=== PATIENT | male | born 1980 | race Caucasian/White ===

== ENCOUNTER 2024-10-15 13:36 | Emergency (ER) | payer OTHER, SELFPAY ==
[2024-10-15 13:40] VITALS: BP 144/100
--- NOTE | 2024-10-15 14:24 | EDRN ---
Pt is having urinary frequency which has increased, sl pain in lower abd area. Pt had PSA of 0.14.
--- NOTE | 2024-10-15 14:25 | EDRN ---
PCT Simone and this RN each bladder scanned pt and no urine (0 mL) scanned by each of us.
--- NOTE | 2024-10-15 14:34 | EDRN ---
Pt in BR attempting urine spec at this time.
[2024-10-15 14:46] VITALS: BP 136/101
[2024-10-15 15:18] LABS: Urine Character Slightly Cloudy (Clear)
[2024-10-15 15:46] LABS: Urine Red Blood Cell 0-2 /HPF (0-2); Urine Squamous Cell 0-2 /LPF (Few); Urine White Cell 0-2 /HPF (0-5)
--- NOTE | 2024-10-15 16:16 | ED.GENMED ---
History of Present Illness
General
Chief Complaint: Urinary Symptoms
Time Seen by Provider: 10/15/24 15:23
History of Present Illness
History of Present Illness:
SEE MDM
Phy Exam
Physical Exam
Physical Exam:
GENERAL: Alert , in no apparent distress
EYE: pupils equal and reactive
NECK: Supple
ENT: o/p clr, mmm.
CARDIAC: Regular rate and rhythm .
LUNGS: Clear breath sounds bilaterally, no acute respiratory distress, no wheezes/rales/rhonchi
ABDOMEN: Soft, without focal tenderness, no r/g, no cvat, normal bowel sounds
bladder scan 0 ml
exam normal
prostate nontender
normal testicles
no discharge
NEUROLOGICAL: Alert and oriented, no focal neuro deficits
SKIN: Warm and dry, skin intact.
MUSCULOSKELETAL: No edema, well perfused.
PSYCH: Normal and appropriate interaction.
Course
Orders/Labs/Results
Orders:
Orders
10/15/24 15:00
Urinalysis Reflex To Culture Urgent
Date Specimen was Collected: 10/15/24
Time Specimen was Collected: 14:46
Urine Microscopic Reflex Cult Urgent
10/15/24 16:02
CT Abd/pel Without Iv Or Oral Urgent
Comment:
Reason For Exam: urinary frequency, hematuria, chills
10/15/24 17:24
Complete Blood Count/With Diff Urgent
Comprehensive Metabolic Panel Urgent
10/15/24 18:12
Ciprofloxacin HCl [Cipro] 500 mg PO NOW STA
Abnormal Lab Results
10/15/24 10/15/24
15:00 17:24
MCH 31.2 H pg
(27.0-31.0)
RDW 11.1 L %
(11.5-14.5)
Chloride 111 H mmol/L
(98-107)
Urine Ketones 2+ A
(Negative)
Ur Occult Blood Reflex 1+ A
(Negative)
Urine Bacteria (Reflex) Few A
(Negative)
10/15/24 17:24
10/15/24 17:24
Vital Signs
Initial and Last Documented VS:
Initial Vital Signs
Temp Pulse Resp BP Pulse Ox
36.7 C 67 16 144/100 98
10/15/24 13:40 10/15/24 13:40 10/15/24 13:40 10/15/24 13:40 10/15/24 13:40
Last Documented Vital Signs
Temp Pulse Resp BP Pulse Ox
36.7 C 74 18 147/83 98
10/15/24 13:40 10/15/24 17:18 10/15/24 17:18 10/15/24 17:18 10/15/24 17:18
MDM/Problems Addressed
Differential Diagnosis Includes:
see MDM
MDM/Problems Addressed:
Note:
CHIEF COMPLAINT(S)
Increased frequency of urination and urinary dribbling.
HISTORY OF PRESENT ILLNESS
The patient is a male who reports experiencing increased frequency in urination and urinary dribbling for the past one to two weeks. He describes needing to urinate more often and feels the urge to urinate again shortly after finishing. Over the
last two to three days, these symptoms have become quite bothersome, affecting his daily activities. He mentions experiencing some mild pain in the lower abdomen, which he associates with a previous sports hernia from last year, though he considers
this pain to be insignificant. The patient expresses concern about a potential urinary tract infection and recalls undergoing a urine test but is unsure of the results at this time. Additionally, he had a Prostate-Specific Antigen (PSA) test last
week due to concerns about prostate issues, which returned a result of 0.014 ng/mL, well below the threshold for prostate cancer concern. He reports experiencing mild fever and chills but denies any vomiting. 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
early the next morning and is seeking medical assistance for his symptoms before attending this commitment.
SOCIAL DETERMINANTS AFFECTING HEALTH
The patient mentions having a class that requires traveling early the next morning, which suggests time constraints and the need to manage symptoms impacting his schedule.
PHYSICAL EXAM
- Nursing notes reviewed and vital signs reviewed.
- Abdominal examination reveals mild tenderness in the lower abdomen.
- Prostate examination recommended.
PLAN
1. Review the results of the patients recent urine test to evaluate for any signs of infection.
2. Conduct a physical examination, including a prostate examination, to assess the patients symptoms further.
3. Provide guidance and potential treatment options to address the patients urinary symptoms.
DIFFERENTIAL DIAGNOSIS
The Differential Diagnosis includes, in no particular order and is not limited to:
1. Benign Prostatic Hyperplasia
2. Urinary Tract Infection
3. Prostatitis
4. Bladder outlet obstruction
5. Urethral stricture
6. Interstitial cystitis
7. Bladder stones
8. Lower urinary tract infection
9. Overactive bladder
10. Neurogenic bladder disorder
44-year-old male, generally healthy here for urinary frequency for the last week, increasing to the last 3 days without any dysuria, fever, rectal pressure, vomiting or back pain. Patient had a PSA drawn last week concerned he could have prostate
cancer given that he is a corporate pilot and there are more high risk. His PSA was normal.
He is out of town, he is from [facility] and due to fly as a corporate pilot tomorrow. Patient sayS he wanted to get checked out before his flight. On exam he is afebrile, well-appearing, nontender, there is no testicular masses or swelling, prostate did
not feel enlarged and had no tenderness, exam was normal.
His urine shows uroscopic blood and few bacteria but no whites or leuks or nitrates.
White count is normal, creatinine normal. CT does not show any prostate enlargement but there is a tiny prostatic calcification. I did review this with Dr. Michelle on-call for urology who said this is unlikely to be causative of symptoms since it
small and also not associated with prostatitis. He suggested if we thought the prostate was enlarged to start Flomax.
At this point since this is more acute I felt that we should cover for infection with Cipro. Patient will defer the Flomax to his urologist when he returns home
*Pulse Oximetry
SaO2: 99
Oxygen Mode of Delivery: Room air
Patient hypoxic: no
*Critical Care Note
Total Time (30-74mins, 75-104mins- exclusive of procedures): Not Applicable
ED Attending Note
-
Portions of this chart may have been created with voice recognition software.� Occasional wrong word or��sound alike� substitutions may have occurred due to the inherent limitations of voice recognition software.
Discharge Plan
Departure
Patient Disposition: Home (Routine Discharge)
Date of Disposition: 10/15/24
Time of Disposition: 18:10
Patient with high blood pressure during this ER visit?: No
Condition: Fair
Covid-19: Not Applicable
Discharge Problem:
Urinary frequency
Instructions: Urinary Tract Infection, Adult (DC)
Prescriptions:
New
ciprofloxacin HCl [Cipro] 500 mg tablet
500 mg PO BID Qty: 14 0RF
Referrals:
Mello Mitchell, DO [Family Provider, Family Practice] - Follow up in 2-3 days
Stand Alone Forms: Return to Work
Activity Restrictions/Additional Instructions:
YOU MAY HAVE BACTERIA IN YOUR URINE CAUSING A URINE INFECTION
YOUR PROSTATE DID NOT APPEAR ENLARGED
YOU HAD NORMAL KIDNEY FUNCTION
TRY CIPRO TWICE A DAY FO R7 DAYS FOR INFECTION
AVOID EXERCISE WITH THIS MEDICATION BECAUSE YOU CAN HAVE TENDON ISSUES
RETURN FOR: FEVER, VOMITING, BACK PAIN, BLOODY URINE OR ANY CONCERNS.
Interventions
Interventions:
*Risk Screen - Suicide Last Done: 10/15/24 14:28
*General Assessment Last Done: 10/15/24 14:26
*Neglect/Abuse Screening Last Done: 10/15/24 14:28
*ED- Fall Risk Assessment Last Done: 10/15/24 14:26
*ED COVID-19 Vaccine History Last Done: 10/15/24 14:26
ED-Male Genitourinary Assessment Last Done: 10/15/24 14:29
Discharge Date and Time
Print Language: WOLOF
[2024-10-15 16:21] VITALS: BMI 28.8
[2024-10-15 17:18] VITALS: BP 147/83
[2024-10-15 17:35] LABS: Hematocrit 42.9 % (39.0-52.0); Hemoglobin 15.1 g/dL (13.0-18.0); Mean Corp Hgb Conc. 35.2 g/dL (33.0-37.0); Mean Corpuscular Volume 88.6 fL (80.0-94.0); Nucleated Red Blood Cells % 0 % (-); Platelet Count 164 10^3/uL (130-400); Red Cell Dist. Width 11.1 % (11.5-14.5)
[2024-10-15 17:57] LABS: ALT (SGPT) 19 U/L (0-50); AST (SGOT) 20 U/L (17-59); Albumin 4.6 g/dl (3.5-5.0); Alkaline Phosphatase 48 U/L (38-126); Blood Urea Nitrogen 9 mg/dl (9-20); Calcium 9.4 mg/dl (8.4-10.2); Carbon Dioxide 22 mmol/L (22-30); Chloride 111 mmol/L (98-107); Estimated Creatinine Clearance 116 ml/min; Glucose 89 mg/dl (70-99); Potassium 3.9 mmol/L (3.5-5.1); Sodium 140 mmol/L (135-145); Total Protein 7.2 g/dl (6.3-8.2); eGFR > 60.00
[2024-10-15] MEDS: CIPRO 500 MG PO (18:37)
== END 2024-10-15 18:50 | disposition home or self-care (01) ==
LOC: EMR 13:36
PROVIDERS: Physician Assistant; EMERGENCY PHYSICIAN Emergency Medicine; FAMILY PHYSICIAN Family Medicine
DX: R35.0 Frequency of micturition (principal); R50.9 Fever, unspecified; N42.89 Other specified disorders of prostate
CPT/HCPCS: 99284; 74176; 80053; 81003; 81015; 85025; 87086

== ENCOUNTER → 2024-12-01 10:37 | Outpatient (REF) | payer OTHER, SELFPAY | LOC: HWRAD 10:37 | PROVIDERS: ATTENDING PHYSICIAN Family Medicine | DX: E78.00 Pure hypercholesterolemia, unspecified (principal) | CPT/HCPCS: 75571 ==